=== PATIENT | female | born 1950 | race Caucasian/White ===

== ENCOUNTER 2020-08-11 08:51 | Day surgery (SDC) | payer MEDICARE, MEDICAID ==
[2020-08-11] MEDS ORDERED: Sodium Bicarbonate 2.5 MEQ/5 ML VIAL ONE (09:09)
[2020-08-11 09:30] VITALS: BMI 19.0
[2020-08-11 09:33] VITALS: BP 141/77; TEMP 98
== END 2020-08-11 10:00 | disposition home or self-care (01) ==
LOC: CSHULT 08:51
PROVIDERS: ATTEND Physician Assistant Medical
DX: R18.8 Other ascites (principal)
CPT/HCPCS: 49083

== ENCOUNTER → 2020-08-19 | Day surgery (SDC) | payer MEDICARE, MEDICAID | LOC: CSHULT 12:51 | PROVIDERS: ATTEND Physician Assistant Medical | DX: R18.8 Other ascites (principal) | CPT/HCPCS: 49083 ==